=== PATIENT | male | born 1995 | race Caucasian/White ===

== ENCOUNTER 2020-10-18 11:47 | Emergency (ER) | payer SELFPAY ==
[~2020-10-18] VITALS: Ht 185.4 cm; Wt 113.4 kg
[2020-10-18] MEDS ORDERED: LEVOTHYROXINE112 MC1 PO (12:01)
--- NOTE | 2020-10-19 16:28 | EKG ---
[facility] [address] [place] [address] Signed Sinus rhythm with marked sinus arrhythmia Left axis deviation Pulmonary disease pattern Abnormal ECG No previous ECGs available Confirmed by MARTI FLORES DO ([id number]) on 10/19/2020 4:28:13 PM Electronically Signed By: MARTI FLORES DO 10/19/20 1628 PATIENT NAME: NAVYA MARQUIS LUCERO Electrocardiogram DATE OF : 89 PHYSICIAN: MARTI FOLRES DO REPORT #: [id number] REPORT IS CONFIDENTIAL AND NOT TO BE RELEASED WITHOUT AUTHORIZATION
== END 2020-10-18 12:36 | disposition home or self-care (01) ==
LOC: ED 11:47
DX: B34.9 Viral infection, unspecified (principal); E03.9 Hypothyroidism, unspecified; Z20.822 Contact with and (suspected) exposure to COVID-19; Z87.891 Personal history of nicotine dependence; Z79.899 Other long term (current) drug therapy
CPT/HCPCS: 93005; 93010; 99284-25; U0003

== ENCOUNTER 2021-07-05 23:00 | Emergency (ER) | payer SELFPAY ==
[~2021-07-05] VITALS: Ht 185.4 cm; Wt 110.7 kg
[~2021-07-05 23:00] MED LIST: LEVOTHYROXINE112 MC1 PO
== END 2021-07-06 01:54 | disposition home or self-care (01) ==
LOC: ED 23:00
DX: B34.9 Viral infection, unspecified (principal); E03.9 Hypothyroidism, unspecified; Z20.822 Contact with and (suspected) exposure to COVID-19; Z79.899 Other long term (current) drug therapy; Z88.8 Allergy status to other drugs, medicaments and biological substances
CPT/HCPCS: 99283; C9803; U0003

== ENCOUNTER 2024-03-23 07:54 | Emergency (ER) | payer SELFPAY ==
[~2024-03-23] VITALS: Ht 185.4 cm; Wt 102.1 kg
--- OUTSIDE RECORDS SUMMARY | 2024-03-23 07:55 | XMS ---
PreManage Notification: NAVYA MARQUIS Security Angio Technologist Events No recent Security Events currently on file CRITERIA MET - PDMP CARE PROVIDERS -, Bryan Villatorobanner- Dentist: Scarf Gluer [facility] PHONE: [phone] Marito has no Care Guidelines for this patient. EHeather VISIT COUNT (12 MO.) [address] [facility] TOTAL 1 NOTE: Visits indicate total known visits. ED/UCC VISIT TRACKING (12 MO.) 03/23/2024 07:54 [facility] OR TYPE: Emergency COMPLAINT: - R HAND PAIN INPATIENT VISIT TRACKING (12 MO.) No inpatient visits to display in this time frame [email or web address]
[2024-03-23] MEDS ORDERED: LISDEXAMFETAMIN30 MG PO (08:07)
[2024-03-23 09:50] VITALS: BP 128/82
== END 2024-03-23 09:50 | disposition home or self-care (01) ==
LOC: ED 07:54
DX: L03.011 Cellulitis of right finger (principal); Z88.8 Allergy status to other drugs, medicaments and biological substances; Z79.899 Other long term (current) drug therapy; Z79.890 Hormone replacement therapy
CPT/HCPCS: 10060; 99283-25